=== PATIENT | male | born 1950 | race Caucasian/White ===

== ENCOUNTER → 2018-11-13 | Outpatient (CLI) | payer MEDICARE ==
[2018-11-13 15:40] LABS: Protein, Urine Random 129.3 mg/dL (0.0-11.9)
== END | disposition home or self-care (01) ==
LOC: LAB 14:36 → LAB SHORT 14:36
PROVIDERS: Internal Medicine
DX: N18.5 Chronic kidney disease, stage 5 (principal)
CPT/HCPCS: 82570; 84156

== ENCOUNTER 2018-12-09 13:24 | Emergency (ER) | payer MEDICARE ==
[~2018-12-09] VITALS: Ht 172.7 cm; Wt 68.0 kg
[2018-12-09 13:59] LABS: BASOPHILS ABSOLUTE AUTO 0.04 K/mm3 (0.00-0.23); BASOPHILS PERCENT AUTO 0 % (0-2); EOSINOPHILS PERCENT AUTO 1 % (0-6); Hematocrit 41.2 % (37.0-53.0); Hemoglobin 12.8 g/dL (13.5-17.5); IMMATURE GRAN ABSOLUTE AUTO 0.03 K/mm3 (0.00-0.10); IMMATURE GRAN PERCENT AUTO 0 % (0-1); LYMPHOCYTES ABSOLUTE AUTO 0.73 K/mm3 (0.84-5.20); LYMPHOCYTES PERCENT AUTO 8 % (21-46); MONOCYTES ABSOLUTE AUTO 0.43 K/mm3 (0.16-1.47); MONOCYTES PERCENT AUTO 5 % (4-13); Mean Corpuscular HGB 30.2 pg (26.0-34.0); Mean Corpuscular HGB Conc 31.1 g/dL (31.5-36.5); Mean Corpuscular Volume 97 fL (80-100); Mean Platelet Volume 9.5 fL (9.1-12.4); NEUTROPHILS ABSOLUTE AUTO 8.22 K/mm3 (1.96-9.15); NEUTROPHILS PERCENT AUTO 86 % (41-73); Platelet Count 115 K/mm3 (150-400); RDW Coefficient Variation 14.6 % (11.7-14.2); RDW Standard Deviation 52.2 fL (35.1-46.3); Red Blood Cell Count 4.24 M/mm3 (4.30-5.90); White Blood Cell Count 9.55 K/mm3 (4.00-11.30)
[2018-12-09] MEDS ORDERED: ALBU90OI61 INH (14:04)
[2018-12-09] MEDS ORDERED: GABA100 PO (14:05)
[2018-12-09] MEDS ORDERED: LISI5 PO (14:05)
[2018-12-09] MEDS ORDERED: ROPI.25 PO (14:05)
[2018-12-09] MEDS ORDERED: TRAM50 PO (14:07)
[2018-12-09] MEDS ORDERED: ZOLP10 PO (14:07)
[2018-12-09] MEDS ORDERED: Azor 5-20 MG T1 EACH PO (14:07)
[2018-12-09] MEDS ORDERED: Norco 5-325 Ta1 EACH PO (14:08)
[2018-12-09 14:20] LABS: Source, Urine Clean Catch
[2018-12-09 14:23] LABS: Bilirubin, Urine Neg (Neg); Blood, Urine 5+ (Neg); Glucose Qualitative, Urine Neg (Neg); Ketones, Urine 1+ (Neg); Leukocyte Esterase, Urine 3+ (Neg); Nitrite, Urine Neg (Neg); Protein, Urine 3+ (Neg); Specific Gravity, Urine 1.015 (1.003-1.022); Urobilinogen, Urine NORM (Normal)
[2018-12-09 14:32] LABS: Albumin, Blood 3.5 g/dL (3.4-5.0); Albumin/Globulin Ratio 1.1 (0.8-1.8); Bilirubin, Total 0.3 mg/dL (0.1-1.0); Bun/Creatinine Ratio 12.9 (12.0-20.0); Calcium, Blood 9.5 mg/dL (8.5-10.1); Creatinine, Blood 4.48 mg/dL (0.60-1.20); Globulin, Blood 3.2 g/dL (2.2-4.0); Potassium, Blood 5.3 mmol/L (3.5-5.5); Total Protein, Blood 6.7 g/dL (6.4-8.2)
[2018-12-09 14:34] LABS: Red Blood Cells, Urine TNTC /hpf (0-2); White Blood Cells, Urine 50-100 /hpf (0-5)
[2018-12-09 14:35] LABS: Bacteria Many /hpf; Squamous Epithelial Cells Rare /hpf (Few)
[2018-12-09 14:38] LABS: Appearance, Urine Turbid (Clear); Color, Urine Brown (P-Yellow)
[2018-12-09 14:52] LABS: International Normalized Ratio 0.93; Prothrombin Time Results 9.9 Sec (9.7-11.5)
[2018-12-09] MEDS ORDERED: ATOR10 PO (15:23)
[2018-12-09] MEDS ORDERED: BUDE10.22 INH (15:26)
[2018-12-09] MEDS ORDERED: CHOL10002 PO (15:27)
[2018-12-09] MEDS ORDERED: DUTA.5 PO (15:27)
[2018-12-09] MEDS ORDERED: CEPH500 PO (16:15)
== END 2018-12-09 16:27 | disposition home or self-care (01) ==
LOC: ER 13:24
PROVIDERS: Emergency Medicine
DX: G45.9 Transient cerebral ischemic attack, unspecified (principal); N39.0 Urinary tract infection, site not specified; N18.6 End stage renal disease; Z66 Do not resuscitate
CPT/HCPCS: 36415; 70450; 71045; 80053; 81001; 85025; 85610; 85730; 87077; 87086; 87186; 93005; 93010; 96365; 99285-25; J0696